=== PATIENT | female | born 1955 | race Two or more races ===

== ENCOUNTER 2018-08-14 19:52 | Emergency (ER) | payer OTHER ==
[~2018-08-14] VITALS: Ht 157.5 cm; Wt 105.2 kg
--- NOTE | 2018-08-14 19:55 | NUR ---
Pt came to ER complaining of R shoulder pain and L arm pain following fall on saturday. Pt was seen at [facility] [place] and has L sugar tong splint of L forearm. Pt states pain has been getting worse since Saturday and keeping her up at night. Pain 8/. Pt respirations even and unlabored. Pt [id number]. Pt put on the monitor and waiting eval from ER .
[2018-08-14] MEDS ORDERED: MORPHINE SULFATE INJ 4 MG/ML DISP.SYRIN ONE (20:22)
[2018-08-14] MEDS ORDERED: ONDANSETRON 4 MG TAB.RAPDIS ONE (20:23)
[2018-08-14] MEDS ORDERED: ONDANSETRON 4 MG TAB.RAPDIS PO ONE (20:30)
[2018-08-14] MEDS ORDERED: MORPHINE SULFATE INJ 2 MG/ML DISP.SYRIN IM ONE (20:30)
--- NOTE | 2018-08-14 20:40 | NUR ---
Radiology at bedside for XRAY.
--- NOTE | 2018-08-14 21:14 | NUR ---
Rachel goncalves in ED - 08/14/18 at 2134 by STEVEN Patient discharged to home in stable condition. Written and verbal after care instructions given. Patient verbalizes understanding of instruction.
--- NOTE | 2018-08-14 21:23 | NUR ---
EMT AT BEDSIDE FOR SPLINT.
[2018-08-14 21:35] VITALS: BP 138/74
--- NOTE | 2018-08-14 21:35 | NUR ---
Patient discharged to home in stable condition. Written and verbal after care instructions given. Patient verbalizes understanding of instruction.
== END 2018-08-14 21:36 | disposition home or self-care (01) ==
LOC: ER 20:00
DX: S62.102A Fracture of unspecified carpal bone, left wrist, initial encounter for closed fracture (principal); M25.511 Pain in right shoulder; Z91.040 Latex allergy status; Z98.890 Other specified postprocedural states; W01.0XXA Fall on same level from slipping, tripping and stumbling without subsequent striking against object, initial encounter; Y93.89 Activity, other specified; Y92.89 Other specified places as the place of occurrence of the external cause; Y99.8 Other external cause status
CPT/HCPCS: 73030; 73110; 96372; 99283; A4606; J2270; Q0162; Z7610